=== PATIENT | male | born 1995 | race American Indian/Alaskan Native ===

== ENCOUNTER 2019-02-20 19:09 | Emergency (ER) | payer SELFPAY ==
--- NOTE | 2019-02-20 19:25 | Event Note ---
ED Screening Note Date of service: 02/20/19 Time: 19:17 ED Screening Note: This is a 23 y.o. M. that presents to the ER with chest tightness and dyspnea. Using inhalers and neb treatments with no improvement. Symptoms worse with deep breaths. This initial assessment/diagnostic orders/clinical plan/treatment(s) is/are subject to change based on patients health status, clinical progression and re- assessment by fellow clinical providers in the ED. Further treatment and workup at subsequent clinical providers discretion. Patient/guardian urged not to elope from the ED as their condition may be serious if not clinically assessed and managed. Initial orders include: CXR Neb treatment
[2019-02-20] MEDS ORDERED: PROVENTIL IH ONE ×2 (19:49→19:50)
[2019-02-20] MEDS ORDERED: ATROVENT IH ONE ×2 (19:49→20:41)
[2019-02-20] MEDS ORDERED: MAGNESIUM SULFATE 2GM/50ML 2 GM/50 ML BAG IV ONE (20:10)
[2019-02-20] MEDS ORDERED: SOLU-Medrol IV ONE (20:10)
--- NOTE | 2019-02-20 20:12 | Emergency Department Report ---
ED General Adult HPI - General Chief complaint: Dyspnea/Respdistress Stated complaint: ASTHMA ATTACK Time Seen by Provider: 02/20/19 19:16 Source: patient Mode of arrival: Ambulatory Limitations: No Limitations - History of Present Illness Initial comments: 23-year-old male with a history of asthma presents with complaint of worsening shortness of breath. Patient states that he's been short of breath all day and has had no relief with his inhaler use. Patient states he has uses nebulizer with minimal relief. Patient states that he has no prior history of intubations. Patient states that his last admission was as a child. Patient states his last ER visit was at [facility] 3 months ago. - Related Data Previous Rx's Medication Instructions Recorded Last Taken Type ALBUTEROL NEB's [Proventil 0.083% 2.5 mg IH TID PRN #90 neb 02/20/19 Unknown Rx NEBS] Albuterol Sulfate [Proair 90 mcg IH BID #1 aer.[email or web address] 02/20/19 Unknown Rx Respiclick] predniSONE [Deltasone] 40 mg PO QDAY #10 tab 02/20/19 Unknown Rx Allergies Allergy/AdvReac Type Severity Reaction Status Date / Time No Known Allergies Allergy Unverified 02/20/19 21:39 ED Review of Systems ROS: Stated complaint: ASTHMA ATTACK Other details as noted in HPI Constitutional: denies: chills, fever Eyes: denies: eye pain, eye discharge, vision change ENT: denies: ear pain, throat pain Respiratory: SOB at rest, wheezing Cardiovascular: denies: chest pain, palpitations Endocrine: no symptoms reported Gastrointestinal: denies: abdominal pain, nausea, diarrhea Genitourinary: denies: urgency, dysuria Musculoskeletal: denies: back pain, joint swelling, arthralgia Skin: denies: rash, lesions Neurological: denies: headache, weakness, paresthesias Psychiatric: denies: anxiety, depression Hematological/Lymphatic: denies: easy bleeding, easy bruising ED Past Medical Hx - Past Medical History Hx Asthma: Yes - Social History Smoking Status: Former Smoker - Medications Home Medications: Home Medications Medication Instructions Recorded Confirmed Last Taken Type ALBUTEROL NEB's [Proventil 0.083% 2.5 mg IH TID PRN #90 neb 02/20/19 Unknown Rx NEBS] Albuterol Sulfate [Proair 90 mcg IH BID #1 aer.pow.ba 02/20/19 Unknown Rx Respiclick] predniSONE [Deltasone] 40 mg PO QDAY #10 tab 02/20/19 Unknown Rx ED Physical Exam - General Limitations: No Limitations General appearance: alert, other (uncomfortable;) - Head Head exam: Present: atraumatic, normocephalic - Eye Eye exam: Present: normal appearance - ENT ENT exam: Present: mucous membranes moist - Neck Neck exam: Present: normal inspection - Respiratory Respiratory exam: Present: respiratory distress (moderate), wheezes (diffuse), accessory muscle use - Cardiovascular Cardiovascular Exam: Present: regular rate, normal rhythm. Absent: systolic murmur, diastolic murmur, rubs, gallop - GI/Abdominal GI/Abdominal exam: Present: soft, normal bowel sounds - Rectal Rectal exam: Present: deferred - Extremities Exam Extremities exam: Present: normal inspection - Back Exam Back exam: Present: normal inspection - Neurological Exam Neurological exam: Present: alert, oriented X3 - Psychiatric Psychiatric exam: Present: normal affect, normal mood - Skin Skin exam: Present: warm, dry, intact, normal color. Absent: rash ED Course Vital Signs 02/20/19 02/20/19 02/20/19 19:13 20:43 20:45 Temperature 98.6 F Pulse Rate 145 H 137 H Pulse Rate [ 135 H Bilateral Throughout] Respiratory 22 16 Rate Respiratory 27 H Rate [Bilateral Throughout] Blood Pressure 100/52 Blood Pressure 118/67 [Left] O2 Sat by Pulse 94 95 Oximetry ED Medical Decision Making - Medical Decision Making Patient received magnesium and solumedrol as well as albuterol treatment while here in emergency department. Patient received 10 mg of albuterol and one A trovent while in emergency department. Patient ambulated after receiving these interventions and his oxygen saturation was greater than 95%. Patient has sensation wheezing. Patient be discharged to follow-up as an outpatient. - Differential Diagnosis pneumonia; asthma exacerbation; Critical care attestation.: If time is entered above; I have spent that time in minutes in the direct care of this critically ill patient, excluding procedure time. ED Disposition Clinical Impression: Asthma exacerbation Disposition: DC-01 TO HOME OR SELFCARE Is pt being admited?: No Does the pt Need Aspirin: No Condition: Stable Instructions: Asthma (ED) Prescriptions: predniSONE [Deltasone] 40 mg PO QDAY #10 tab Albuterol Sulfate [Proair Respiclick] 90 mcg IH BID #1 aer.pow.ba ALBUTEROL NEB's [Proventil 0.083% NEBS] 2.5 mg IH TID PRN #90 neb PRN Reason: Wheezing Referrals: PRIMARY CARE, [Primary Care Provider] - 3-5 Days Print Language: URDU
--- NOTE | 2019-02-20 20:16 | XRay Report ---
CHEST 1 VIEW INDICATION / CLINICAL INFORMATION: dyspnea and chest discomfort. COMPARISON: None available. FINDINGS: SUPPORT DEVICES: None. HEART / MEDIASTINUM: No significant abnormality. LUNGS / PLEURA: No significant pulmonary or pleural abnormality. No pneumothorax. ADDITIONAL FINDINGS: No significant additional findings. IMPRESSION: 1. No significant change Signer Name: Cristopher Nguyen MD Signed: 02/20/2019 8:12 PM Workstation Name: [id number]
[2019-02-20 23:04] VITALS: BP 102/60
== END 2019-02-20 22:50 | disposition home or self-care (01) ==
LOC: ED 19:09
DX: J45.901 Unspecified asthma with (acute) exacerbation (principal); Z87.891 Personal history of nicotine dependence
CPT/HCPCS: 71045; 94644; 96365; 96375; 99283; J2930; J3475